=== PATIENT | male | born 1940 | race Caucasian/White ===

== ENCOUNTER → 2016-11-10 | Outpatient (CLI) | payer BC ==
[~2016-11-10] MED LIST: AMLO-114 PO; ASPI325T45 PO; ATOR-24 PO; GARL705C PO; GLIM4TAB PO; LISI-461 PO; LISI-725 PO; NCDT21 EXT; PLV75 PO; PRIM50TA29 PO; PROP10TA7 PO; PSYL55.43 PO; TURM1CAP4 PO; WLC625 PO
[2016-11-10 17:41] LABS: URINE APPEARANCE CLEAR (CLEAR); URINE BILIRUBIN NEG (NEG); URINE COLOR YELLOW; URINE EPITHELIAL CELL AUTO 0-5 /lpf (0-5); URINE NITRITE NEG (NEG); URINE PH 5.5 (4.5-7.5); URINE SPECIFIC GRAVITY 1.015 (1.000-1.030); UROBILINOGEN NEG (NEG)
[2016-11-10 17:42] LABS: BLOOD UREA NITROGEN 38 mg/dl (7-18); BUN/CREATININE RATIO 22.6 (10-20); CALCIUM 9.7 mg/dl (8.5-10.1); CARBON DIOXIDE 28 mmol/L (21-32); CHLORIDE 106 mmol/L (98-107); GLUCOSE 107 mg/dl (70-99); POTASSIUM 4.6 mmol/L (3.5-5.1); SODIUM 139 mmol/L (136-145)
[2016-11-10 17:43] LABS: PHOSPHORUS 3.9 mg/dl (2.5-4.9)
[2016-11-10 17:53] LABS: MANUAL MICROSCOPIC REQUIRED? NO; REVIEW REQ? NO
[2016-11-10 18:07] LABS: URINE PROTIEN/CREAT RATIO 0.3 (0-0.2); URINE TOTAL PROTEIN 26.8 mg/dl (0-11.9)
== END | disposition home or self-care (01) ==
LOC: C.LABBFT 12:42
PROVIDERS: ATTEND Internal Medicine Nephrology
DX: N18.3 Chronic kidney disease, stage 3 (moderate) (principal)

== ENCOUNTER → 2016-12-15 | Outpatient (CLI) | payer BC ==
[2016-12-16 06:40] LABS: ESTIMATED AVERAGE GLUCOSE 146 mg/dl; HA1C FLAG Normal (Normal)
== END | disposition home or self-care (01) ==
LOC: C.LABBFT 12:39
PROVIDERS: ATTEND Family Medicine
DX: E11.9 Type 2 diabetes mellitus without complications (principal)

== ENCOUNTER → 2016-12-17 | Outpatient (CLI) | payer BC ==
[2016-12-29 16:35] LABS: O&P SOURCE OTHER-STOOL
== END | disposition home or self-care (01) ==
LOC: C.LABSPEC 17:05
PROVIDERS: ATTEND Physician Assistant
DX: R19.7 Diarrhea, unspecified (principal)

== ENCOUNTER → 2017-05-10 | Outpatient (CLI) | payer BC ==
[2017-05-10 18:45] LABS: URINE APPEARANCE CLEAR (CLEAR); URINE BILIRUBIN NEG (NEG); URINE COLOR YELLOW; URINE NITRITE NEG (NEG); URINE PH 5.5 (4.5-7.5); URINE SPECIFIC GRAVITY 1.017 (1.000-1.030); UROBILINOGEN NEG (NEG)
[2017-05-10 18:49] LABS: MANUAL MICROSCOPIC REQUIRED? NO; REVIEW REQ? NO
[2017-05-10 19:09] LABS: BLOOD UREA NITROGEN 24 mg/dl (7-18); BUN/CREATININE RATIO 16.1 (10-20); CALCIUM 8.8 mg/dl (8.5-10.1); CARBON DIOXIDE 25 mmol/L (21-32); CHLORIDE 111 mmol/L (98-107); GLUCOSE 98 mg/dl (70-99); POTASSIUM 4.3 mmol/L (3.5-5.1); SODIUM 143 mmol/L (136-145)
[2017-05-10 19:11] LABS: PHOSPHORUS 2.6 mg/dl (2.5-4.9)
== END | disposition home or self-care (01) ==
LOC: C.LABBFT 11:41
PROVIDERS: ATTEND Internal Medicine Nephrology
DX: N18.3 Chronic kidney disease, stage 3 (moderate) (principal)

== ENCOUNTER → 2017-06-09 | Outpatient (CLI) | payer BC ==
[2017-06-09 17:25] LABS: BASO % 0.5 %; BASO ABS # 0.04 K/uL (0-0.2); COMPLETE YES; EOS % 2.4 %; IG% 0.2 %; LYMPH ABS # 2.32 K/uL (1.2-3.4); MEAN CELL VOLUME 95.2 fL (80-100); MEAN CORPUSCULAR HEMOGLOBIN 30.8 pg (25-34); MEAN CORPUSCULAR HGB CONC 32.4 g/dl (32-36); MEAN PLATELET VOLUME 10.8 fL (7.4-10.4); MONO % 9.8 %; NEUT % 59.1 %; PLATELET COUNT 159 K/uL (130-400); RED BLOOD COUNT 4.83 M/uL (4.7-6.1); WHITE BLOOD COUNT 8.28 K/uL (4.8-10.8)
[2017-06-09 17:53] LABS: BLOOD UREA NITROGEN 25 mg/dl (7-18); CALCIUM 9.4 mg/dl (8.5-10.1); CARBON DIOXIDE 30 mmol/L (21-32); CHLORIDE 107 mmol/L (98-107); CHOLESTEROL 170 mg/dl (0-200); CREATININE 1.63 mg/dl (0.60-1.40); GLUCOSE 94 mg/dl (70-99); POTASSIUM 4.2 mmol/L (3.5-5.1); SODIUM 142 mmol/L (136-145); TRIGLYCERIDES 215 mg/dl (0-150); VERY LOW DENSITY LIPOPROT CALC 43 mg/dl
[2017-06-09 17:56] LABS: CHOLESTEROL/HDL RATIO 4.1; HDL CHOLESTEROL 41 mg/dl; LDL CHOLESTEROL CALCULATED 86 mg/dl; PHOSPHORUS 3.2 mg/dl (2.5-4.9)
[2017-06-10 06:11] LABS: ESTIMATED AVERAGE GLUCOSE 134 mg/dl; HA1C FLAG Normal (Normal)
== END | disposition home or self-care (01) ==
LOC: C.LABBFT 13:59
PROVIDERS: ATTEND Internal Medicine
DX: N18.3 Chronic kidney disease, stage 3 (moderate) (principal); E78.5 Hyperlipidemia, unspecified; E11.49 Type 2 diabetes mellitus with other diabetic neurological complication; E55.9 Vitamin D deficiency, unspecified; I25.10 Atherosclerotic heart disease of native coronary artery without angina pectoris

== ENCOUNTER → 2017-07-08 | Outpatient (CLI) | payer BC | END | disposition home or self-care (01) | LOC: C.LAB 14:24 | PROVIDERS: ATTEND Internal Medicine | DX: R19.7 Diarrhea, unspecified (principal) ==

== ENCOUNTER → 2017-08-30 | Outpatient (CLI) | payer BC ==
[~2017-08-30] VITALS: Ht 177.8 cm; Wt 136.1 kg
[2017-08-30 12:26] VITALS: BP 138/82; PULSE 85; Ht 177.8 cm; Wt 136.1 kg
== END | disposition home or self-care (01) ==
LOC: C.NEUR 12:00
PROVIDERS: ATTEND Internal Medicine Pulmonary Disease
DX: G47.33 Obstructive sleep apnea (adult) (pediatric) (principal); E66.01 Morbid (severe) obesity due to excess calories; Z68.41 Body mass index [BMI] 40.0-44.9, adult

== ENCOUNTER → 2017-11-07 | Outpatient (CLI) | payer BC ==
[~2017-11-07] MED LIST changes: +ASPECOTC PO; -ASPI325T45 PO
[2017-11-07 16:44] LABS: ALBUMIN 3.5 gm/dl (3.4-5.0); ALT/SGPT 44 U/L (12-78); AST/SGOT 21 U/L (15-37); BLOOD UREA NITROGEN 28 mg/dl (7-18); CALCIUM 9.1 mg/dl (8.5-10.1); CARBON DIOXIDE 25 mmol/L (21-32); CREATININE 1.62 mg/dl (0.60-1.40); GLUCOSE 122 mg/dl (70-99); POTASSIUM 4.3 mmol/L (3.5-5.1); SODIUM 138 mmol/L (136-145)
[2017-11-07 16:47] LABS: ALKALINE PHOSPHATASE 62 U/L (45-117); CHOLESTEROL 186 mg/dl (0-200); LDL CHOLESTEROL CALCULATED 107 mg/dl; PHOSPHORUS 3.4 mg/dl (2.5-4.9); TOTAL PROTEIN 7.4 gm/dl (6.4-8.2)
--- NOTE | 2017-12-09 08:53 | CODING QUERY NO DIAGNOSIS ---
: 1940 TREATMENT RENDERED WITHOUT A DIAGNOSIS To promote full compliance with coding requirements relating to patient care, physician participation is requested in all cases of feather renovator uncertainty. Please assist us with providing a diagnosis/symptom for the test(s) below: A diagnosis/symptom was not documented on your Order. A valid diagnosis/symptom is required to bill all insurances. Please remember that we are unable to code a diagnosis of rule out, probable, possible, questionable, or suspected. Tests that require a diagnosis: DOS: 11/07/17 * PHOSPHORUS DIAGNOSIS: Provider Signature: Date: Thank you Payal oRdas Health Information Management Once completed, please kindly fax back to [phone] For questions please call [phone]
== END | disposition home or self-care (01) ==
LOC: C.LABBFT 13:17
PROVIDERS: ATTEND Physician Assistant Medical
DX: N18.3 Chronic kidney disease, stage 3 (moderate) (principal); E11.22 Type 2 diabetes mellitus with diabetic chronic kidney disease

== ENCOUNTER 2022-07-03 18:06 | Observation (INO) ==
[2022-07-03] MEDS ORDERED: CEFEPIME 2,000 MG/20 ML VIAL IV STA (18:19)
[2022-07-03] MEDS ORDERED: SODIUM CHLORIDE 0.9% 1000ML 1,000 ML IV ONE (18:19)
[2022-07-03] MEDS ORDERED: STAT IV Infusion **Titration per Protocol STA ×2 (18:20→21:36)
[2022-07-03] MEDS ORDERED: PROPOFOL BOLUS FROM BAG IV PRN (18:20)
[2022-07-03] MEDS ORDERED: PROPOFOL IV EMULSION 10 MG/ML 100 ML VIAL IV ONE (18:21)
[2022-07-03] MEDS ORDERED: propofoL 1,000 MG/100 ML VIAL IV SCH (18:30)
--- NOTE | 2022-07-03 18:33 | Emergency Department Note ---
Impression & Plan Aspiration pneumonia, Respiratory failure, Sepsis, Urinary tract infection, Acute alteration in mental status ED Provider Note NAME: JEANETTE LEÓN AGE: 81 SEX: M : 1940 ARRIVES VIA: Ambulance INFORMANT: EMS ED PROVIDER(S): Morgan Sherwood DO CHIEF COMPLAINT: Altered mental status HPI: The patient is a an 81-year-old male who presented to the emergency department for an evaluation of altered mental status. The patient was found at home by family. They last saw him at 4 PM yesterday. At that time the patient did not have any complaints. He has a long medical history. He has a history of type 2 diabetes. He has a history of coronary artery disease. The patient was evaluated by EMS. The patient was found to have hypoglycemia. They were unable to get an IV line in the patient and he was very combative on scene. They finally got an interosseous line. The patient received dextrose and his blood sugar improved but he was still very obtunded. He did not have any lateralizing weakness according to the prehospital personnel he was not seen since yesterday. He has had no vomiting as far as the prehospital personnel know but they found him to be very hypoxic with abnormal lung sounds. He was covered in stool. There is no reported fever. There is no reported trauma. The patient has a history of renal disease. ROS: See above HPI for pertinent positives & negatives. A total of 10 systems reviewed and were otherwise negative. PAST MEDICAL HISTORY: See Below PAST SURGICAL HISTORY: See Below FAMILY HISTORY: See Below SOCIAL HISTORY: See Below HOME MEDICATIONS: See Below ALLERGIES: See Below VITALS: See Below PHYSICAL EXAMINATION: GENERAL: The patient is awake and looking around the room. He is not following commands or answering questions. EYES: The conjunctivae are clear. The pupils are round and reactive. EARS, NOSE, MOUTH AND THROAT: The nose is without any evidence of any deformity. NECK: The neck is nontender and supple. RESPIRATORY: Shallow respirations were noted. Rhonchi were noted throughout. CARDIOVASCULAR: Tachycardic rate with ectopy was noted. There is no definite murmur. GASTROINTESTINAL: The abdomen was distended. There is no guarding rigidity. MUSCULOSKELETAL/EXTREMITIES: There is no evidence of gross deformity full range of motion is noted in the hips and shoulders. SKIN: Chronic venous stasis changes with pedal edema was noted bilaterally. Multiple skin tears were noted on the upper extremities. NEUROLOGIC: Patient is awake and looking around the room. He is moving extremities bilaterally and combative with staff. He does appear to have a right gaze preference and will not look to the left. MEDICAL DECISION MAKING: The patient is an 81-year-old male who presented to the emergency department for an evaluation of altered mental status. The patient arrived via ambulance. Attempts were made to intubate the patient prior to arrival but they were unsuccessful. The patient was clenched down. Upon arrival the decision was made to intubate the patient. The patient was treated with IV fluids and IV antibiotics in the emergency department. The patient was also treated with sedation after he was intubated. The patient's last known well time was yesterday. His family members did present to me with him in the emergency department. The decision was made to continue resuscitative efforts. His oxygen saturation continued to decrease while he was in the emergency d epartment. He was placed on increasing oxygen concentration. [facility] have agreed to evaluate the patient in the emergency department for further management and disposition. Triage Nursing notes reviewed. Prior medical records reviewed Vital Signs: reviewed and remarkable for elevated blood pressure and hypoxia. Differential diagnosis: Infection, hypoglycemia, electrolyte abnormalities, overdose, toxicologic, cardiac sources, intracerebral event, neurologic, trauma, as well as other pathologies. ER treatment provided: See below Diagnostics interpreted by me: ECG: EKG was obtained in the emergency department. My interpretation was sinus tachycardia at 119 bpm. PVCs were noted. Nonspecific ST segment depressions were noted. This was compared to a tracing from November 23, 2021. There is an in crease in the rate otherwise no changes were noted. Cardiac Monitoring: An order was placed for continuous cardiac monitoring. The monitor shows a rate of 79 bpm with sinus rhythm and PVCs. Laboratory studies: As stated above and show below. Imaging studies: See below Consultation(s): I discussed this case with Dr. Chapman who [facility] ED COURSE: Procedures: Endotracheal Intubation Indication altered mental status. The patient was on 100% oxygen via NRB prior to the procedure. Suction, airway equipment, RSI drugs, respiratory equipment, and appropriate personnel were prepared prior to the initiation of the procedure. A time out was taken. Induction was performed with ketamine and rocuronium. After observing the clinical benefit of the medications, the airway was easily visualized utilizing a glide scope. A 7.5 size ETT tube was placed atraumatically to 25 cm using standard technique. The cuff inflated without signs of malfunction. There were bilateral breath sounds, positive colormetric change, no gastric sounds, a good capnography waveform, and post procedure pulse oximetry was 95%. Post intubation sedation and paralysis was administered using propofol. There were no complic ations. Critical Care: I have personally spent greater than 35 minutes of critical care time in the direct management of this patient. This includes bedside care, interpretation of diagnostic studies, and testing, discussion with consultants, patient, and family members, and other required patient management activities. This 35 minutes is in excess of all separately billable procedures. Past Med/Surg History Medical History Actinic keratosis Acute kidney injury Angiofibroma of skin of nose Angioma Antiplatelet or antithrombotic long-term use Aortic valve stenosis CAD in [place] artery Carotid bruit Diabetes mellitus with neurological manifestations Diabetic peripheral neuropathy Diarrhea DELANEY (dyspnea on exertion) Essential (primary) hypertension Hyperlipidemia Hypertension Morbid obesity Multiple benign nevi Obstructive sleep apnea Peripheral edema Proteinuria Sebaceous hyperplasia Seborrheic keratosis Secondary hyperparathyroidism of renal origin Stage 3 chronic kidney disease Stage 3b chronic kidney disease Stool incontinence Vitamin D deficiency Vitamin D deficiency Surgical History H/O umbilical hernia repair S/P TAVR (transcatheter aortic valve replacement) 26 mm Estrada ULTRA valve-02/04/22[facility] [place] Stented coronary artery 1 distal right coronary artery, 1 type drug eluting Family History Brother Colorectal cancer Father Cardiac disorder Myocardial infarction Mother Congestive heart failure Spastic colon Sister Breast cancer Uncle Myocardial infarction Sister Congestive heart failure COVID Unknown Breast cancer Denies family history of Ovarian cancer Prostate cancer Diabetes Lung cancer Social History Smoking Status: Unknown if ever smoked Tobacco Type: Cigarettes Age Started Using Tobacco: 11; packs per day: 1; Second Hand Exposure: Yes; Hx Alcohol Use: Yes Alcohol type: hard liquor Alcohol Intake Frequency: Monthly or Less Alcohol Intake Frequency Comment: once per month he will have 1 cocktail with dinner Hx Substance Use: No Preferred Language: Luxembourger Communication Ability: Effective Visual Impairment: No Limitations Hearing Ability: Hard of Hearing marital status: Single Current Living Situation: Alone current occupational status: retired 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 Feels Safe at Home: Yes Childhood Exposure to Second-Hand Smoke: No caffeine: Yes during the past year weight has: increased > 10 lbs Dental Care, Regularly: Yes Physical Activity Frequency: Does not Exercise Seatbelt Use: always Sunscreen Use: No Allergies Allergies Allergy/AdvReac Type Severity Reaction Status Date / Time Penicillins Allergy Unknown SKIN Verified 07/03/22 18:44 PEELING AND ITCHING metformin Allergy Diarrhea Verified 07/03/22 18:44 [id number] Reductase Allergy muscle Verified 07/03/22 18:44 Inhibitor cramps [[id number] Reductase Inhibitor] Home Meds Home Medications Medication Instructions Recorded Confirmed aspirin 81 mg tablet,delayed 81 mg PO DAILY 04/25/19 07/03/22 release cbd oil 600 ml PO BID 04/03/20 07/03/22 lisinopril 20 mg tablet 20 mg PO DAILY 04/01/22 07/03/22 gabapentin 300 mg capsule 300 mg PO DAILY 05/11/22 07/03/22 clindamycin HCl 150 mg capsule 600 mg PO DIRECTED PRN PRIOR TO 07/03/22 07/03/22 DENTAL APPT. clopidogrel 75 mg tablet 75 mg PO DAILY 07/03/22 07/03/22 glimepiride 1 mg tablet See Rx Instructions .Route .COMPLEX 07/03/22 07/03/22 Previous Rx's Medication Instructions Recorded blood-glucose meter (Blood Glucose #1 ea 07/30/19 Monitoring kit) albuterol sulfate 90 mcg/actuation 2 puff inhalation Q6H PRN 06/01/21 aerosol inhaler (ProAir HFA) shortness of breath or wheezing #8.5 grams blood sugar diagnostic (Blood #300 ea 10/14/21 Glucose Test strips) lancets 30 gauge (OneTouch Delica #300 ea 10/27/21 Lancets) metoprolol succinate 50 mg 50 mg PO DAILY #90 tabs 11/03/21 tablet,extended release 24 hr primidone 50 mg tablet 50 mg PO DAILY #90 tabs 01/12/22 acetaminophen 325 mg tablet 650 mg PO Q4H PRN pain #30 tabs 02/09/22 furosemide 40 mg tablet 40 mg PO DAILY PRN edema #90 tabs 04/30/22 potassium chloride 20 mEq 20 meq PO DAILY PRN Days taking 04/30/22 tablet,extended release furosemide #90 tabs Results & Data (ED) Vital Signs Vital Signs - 24 hr 07/03/22 18:26 07/03/22 18:10 07/03/22 18:45 Temperature Temperature Source Pulse Rate 117 H 137 H Pulse Rate [Left Finger] Pulse Rate from SpO2 Sensor Pulse Rhythm [Left Finger] Respiratory Rate 20 Respiratory Effort / Characteristics Blood Pressure Blood Pressure [Left Arm] Blood Pressure Mean Blood Pressure Mean [Left Arm] Blood Pressure Position [Left Arm] Pulse Oximetry 93 95 Oxygen Delivery Method Mechanical Vent Fraction of Inspired Oxygen 80 Sepsis Recent Fever Within 48 Hours No Sepsis New/Unexplained Change in Mental Status Yes Sepsis Action Taken by Nursing No Action Required End-Tidal CO2 44 07/03/22 18:17 07/03/22 18:20 07/03/22 18:30 Temperature Temperature Source Pulse Rate 118 H Pulse Rate [Left Finger] Pulse Rate from SpO2 Sensor 120 H 109 H Pulse Rhythm [Left Finger] Respiratory Rate 20 Respiratory Effort / Characteristics Blood Pressure 162/114 H Blood Pressure [Left Arm] Blood Pressure Mean 130 Blood Pressure Mean [Left Arm] Blood Pressure Position [Left Arm] Pulse Oximetry 95 97 Oxygen Delivery Method Fraction of Inspired Oxygen Sepsis Recent Fever Within 48 Hours Sepsis New/Unexplained Change in Mental Status Sepsis Action Taken by Nursing End-Tidal CO2 51 07/03/22 18:30 07/03/22 18:45 07/03/22 18:45 Temperature Temperature Source Pulse Rate 126 H 143 H Pulse Rate [Left Finger] Pulse Rate from SpO2 Sensor 122 H 152 H Pulse Rhythm [Left Finger] Respiratory Rate 20 20 Respiratory Effort / Characteristics Blood Pressure 160/84 H Blood Pressure [Left Arm] Blood Pressure Mean 109 Blood Pressure Mean [Left Arm] Blood Pressure Position [Left Arm] Pulse Oximetry 94 95 Oxygen Delivery Method Mechanical Vent Fraction of Inspired Oxygen Sepsis Recent Fever Within 48 Hours Sepsis New/Unexplained Change in Mental Status Sepsis Action Taken by Nursing End-Tidal CO2 43 38 07/03/22 18:56 07/03/22 18:16 07/03/22 18:30 Temperature 37.9 C H Temperature Source Rectal Pulse Rate Pulse Rate [Left Finger] 118 H Pulse Rate from SpO2 Sensor Pulse Rhythm [Left Finger] Irregular Respiratory Rate 20 Respiratory Effort / Characteristics Blood Pressure Blood Pressure [Left Arm] 147/90 H 162/14 H Blood Pressure Mean Blood Pressure Mean [Left Arm] 109 63 Blood Pressure Position [Left Arm] Lying Pulse Oximetry 89 L Oxygen Delivery Method Fraction of Inspired Oxygen Sepsis Recent Fever Within 48 Hours Sepsis New/Unexplained Change in Mental Status Sepsis Action Taken by Nursing End-Tidal CO2 07/03/22 18:16 07/03/22 19:00 07/03/22 19:52 Temperature Temperature Source Pulse Rate 143 H Pulse Rate [Left Finger] 118 H Pulse Rate from SpO2 Sensor 130 H Pulse Rhythm [Left Finger] Irregular Respiratory Rate 20 20 Respiratory Effort / Characteristics Blood Pressure 159/106 H Blood Pressure [Left Arm] 147/90 H Blood Pressure Mean 123 Blood Pressure Mean [Left Arm] 109 Blood Pressure Position [Left Arm] Lying Pulse Oximetry 89 L 93 90 Oxygen Delivery Method Mechanical Vent Fraction of Inspired Oxygen Sepsis Recent Fever Within 48 Hours Sepsis New/Unexplained Change in Mental Status Sepsis Action Taken by Nursing End-Tidal CO2 40 07/03/22 19:15 07/03/22 19:44 07/03/22 19:45 Temperature Temperature Source Pulse Rate 157 H 143 H Pulse Rate [Left Finger] Pulse Rate from SpO2 Sensor 144 H 129 H Pulse Rhythm [Left Finger] Respiratory Rate 20 20 Respiratory Effort / Characteristics Blood Pressure 161/133 H Blood Pressure [Left Arm] Blood Pressure Mean 142 Blood Pressure Mean [Left Arm] Blood Pressure Position [Left Arm] Pulse Oximetry Oxygen Delivery Method Fraction of Inspired Oxygen Sepsis Recent Fever Within 48 Hours Sepsis New/Unexplained Change in Mental Status Sepsis Action Taken by Nursing End-Tidal CO2 34 43 07/03/22 19:45 07/03/22 20:05 07/03/22 20:12 Temperature Temperature Source Pulse Rate 145 H 135 H Pulse Rate [Left Finger] 135 H Pulse Rate from SpO2 Sensor 132 H Pulse Rhythm [Left Finger] Respiratory Rate 17 20 20 Respiratory Effort / Characteristics Mechanically Ventilated Blood Pressure 161/133 H Blood Pressure [Left Arm] Blood Pressure Mean 142 Blood Pressure Mean [Left Arm] Blood Pressure Position [Left Arm] Pulse Oximetry 87 L 91 91 Oxygen Delivery Method Mechanical Vent Fraction of Inspired Oxygen 100 100 Sepsis Recent Fever Within 48 Hours Sepsis New/Unexplained Change in Mental Status Sepsis Action Taken by Nursing End-Tidal CO2 30 40 07/03/22 20:00 07/03/22 20:00 07/03/22 20:15 Temperature Temperature Source Pulse Rate 139 H 138 H Pulse Rate [Left Finger] Pulse Rate from SpO2 Sensor 125 H 147 H Pulse Rhythm [Left Finger] Respiratory Rate 20 20 Respiratory Effort / Characteristics Blood Pressure 157/111 H Blood Pressure [Left Arm] Blood Pressure Mean 126 Blood Pressure Mean [Left Arm] Blood Pressure Position [Left Arm] Pulse Oximetry 84 L 92 Oxygen Delivery Method Fraction of Inspired Oxygen Sepsis Recent Fever Within 48 Hours Sepsis New/Unexplained Change in Mental Status Sepsis Action Taken by Nursing End-Tidal CO2 39 44 07/03/22 20:16 Temperature Temperature Source Pulse Rate 142 H Pulse Rate [Left Finger] Pulse Rate from SpO2 Sensor 141 H Pulse Rhythm [Left Finger] Respiratory Rate 20 Respiratory Effort / Characteristics Blood Pressure 130/78 Blood Pressure [Left Arm] Blood Pressure Mean 95 Blood Pressure Mean [Left Arm] Blood Pressure Position [Left Arm] Pulse Oximetry 87 L Oxygen Delivery Method Fraction of Inspired Oxygen Sepsis Recent Fever Within 48 Hours Sepsis New/Unexplained Change in Mental Status Sepsis Action Taken by Nursing End-Tidal CO2 40 Home Medications Current Medication List: was personally reviewed by me Laboratory Data Attestation: I reviewed the patient's lab results. Result diagrams: 07/03/22 18:23 07/03/22 18:23 Lab Results 07/03/22 07/03/22 07/03/22 Range/Units 18:23 18:23 18:23 WBC 11.07 H (4.8-10.8) K/ul RBC 4.65 (4.63-6.08) M/uL Hgb 14.3 (14.0-18.0) g/dl Hct 44.7 (40.1-51.0) % MCV 96.1 (80.0-100.0) fL MCH 30.8 (25.0-34.0) pg MCHC 32.0 (32.0-36.0) g/dL RDW Std Deviation 50.4 H (36.4-46.3) fL RDW Coeff of Matt 14.2 (11.5-14.5) % Plt Count 176 (130-400) K/uL MPV 10.3 (9.4-12.4) fL Immature Gran % (Auto) 0.3 % Neut % (Auto) 75.3 % Lymph % (Auto) 15.0 % [place] % (Auto) 9.2 % Eos % (Auto) 0.0 % Baso % (Auto) 0.2 % Neut # (Auto) 8.34 H (1.4-6.5) K/uL Lymph # (Auto) 1.66 (1.2-3.4) K/uL [place] # (Auto) 1.02 H (0.24-0.82) K/uL Eos # (Auto) 0.00 (0-0.50) K/uL Baso # (Auto) 0.02 (0-0.2) K/uL Immature Gran # (Auto) 0.03 H (0.00-0.02) K/uL PT 11.4 (9.0-12.0) Seconds INR 1.1 (0.9-1.1) APTT 27.4 (21.0-31.0) Seconds PTT Ratio 1.0 VBG pH (7.36-7.41) VBG pCO2 (38-50) mmHg VBG pO2 mmHg VBG HCO3 mmol/L VBG O2 Saturation % VBG Base Excess mEq/L Sodium 135 L (136-145) mmol/L Potassium 3.6 (3.5-5.1) mmol/L Chloride 101 (98-107) mmol/L Carbon Dioxide 26 (21-32) mmol/L Anion Gap 8 (3-11) BUN 25 H (6-23) mg/dl Creatinine 1.80 H (0.6-1.4) mg/dl Est Cr Clr Drug Dosing 40.2 ml/min Est GFR ( Amer) 39.5 ml/min Est GFR (Non-Af Amer) 34.0 ml/min BUN/Creatinine Ratio 13.9 (10-20) Glucose 86 (70-99(Fasting)) mg/dl POC Glucose (70-99) mg/dl Lactate (0.4-2.0) mmol/L Calcium 9.2 (8.5-10.1) mg/dl Magnesium 1.9 (1.7-2.4) mg/dl Total Bilirubin 0.7 (0.2-1.0) mg/dl Direct Bilirubin 0.2 (0-0.2) mg/dl AST 19 (13-39) U/L ALT 22 (7-52) U/L Alkaline Phosphatase 70 (34-104) U/L Total Creatine Kinase (30-223) U/L Troponin I High Sens 17.0 (0-20) pg/ml Total Protein 7.7 (6.0-8.3) gm/dl Albumin 3.6 (3.4-5.0) gm/dl Procalcitonin (0-0.5) ng/ml Urine Color Urine Appearance (Clear) Urine pH (4.5-7.5) Ur Specific [place] (1.000-1.030) Urine Protein (Negative) Urine Glucose (UA) (Negative) Urine Ketones (Negative) Urine Blood (Negative) Urine Nitrite (Negative) Urine Bilirubin (Negative) Urine Urobilinogen (Negative) Ur Leukocyte Esterase (Negative) Urine RBC (0-4) /hpf Urine WBC (0-5) /hpf Ur Epithelial Cells (0-5) /lpf Urine Bacteria (Negative) SARS-CoV-2 (PCR) (Negative) Influenza Type A (PCR) (Neg) Influenza Type B (PCR) (Neg) RSV (RT-PCR) (Neg) 07/03/22 07/03/22 07/03/22 Range/Units 18:23 18:23 18:23 WBC (4.8-10.8) K/ul RBC (4.63-6.08) M/uL Hgb (14.0-18.0) g/dl Hct (40.1-51.0) % MCV (80.0-100.0) fL MCH (25.0-34.0) pg MCHC (32.0-36.0) g/dL RDW Std Deviation (36.4-46.3) fL RDW Coeff of Matt (11.5-14.5) % Plt Count (130-400) K/uL MPV (9.4-12.4) fL Immature Gran % (Auto) % Neut % (Auto) % Lymph % (Auto) % [place] % (Auto) % Eos % (Auto) % Baso % (Auto) % Neut # (Auto) (1.4-6.5) K/uL Lymph # (Auto) (1.2-3.4) K/uL [place] # (Auto) (0.24-0.82) K/uL Eos # (Auto) (0-0.50) K/uL Baso # (Auto) (0-0.2) K/uL Immature Gran # (Auto) (0.00-0.02) K/uL PT (9.0-12.0) Seconds INR (0.9-1.1) APTT (21.0-31.0) Seconds PTT Ratio VBG pH (7.36-7.41) VBG pCO2 (38-50) mmHg VBG pO2 mmHg VBG HCO3 mmol/L VBG O2 Saturation % VBG Base Excess mEq/L Sodium (136-145) mmol/L Potassium (3.5-5.1) mmol/L Chloride (98-107) mmol/L Carbon Dioxide (21-32) mmol/L Anion Gap (3-11) BUN (6-23) mg/dl Creatinine (0.6-1.4) mg/dl Est Cr Clr Drug Dosing ml/min Est GFR ( Amer) ml/min Est GFR (Non-Af Amer) ml/min BUN/Creatinine Ratio (10-20) Glucose (70-99(Fasting)) mg/dl POC Glucose (70-99) mg/dl Lactate 2.7 H* (0.4-2.0) mmol/L Calcium (8.5-10.1) mg/dl Magnesium (1.7-2.4) mg/dl Total Bilirubin (0.2-1.0) mg/dl Direct Bilirubin (0-0.2) mg/dl AST (13-39) U/L ALT (7-52) U/L Alkaline Phosphatase (34-104) U/L Total Creatine Kinase 124 (30-223) U/L Troponin I High Sens (0-20) pg/ml Total Protein (6.0-8.3) gm/dl Albumin (3.4-5.0) gm/dl Procalcitonin 0.34 (0-0.5) ng/ml Urine Color Urine Appearance (Clear) Urine pH (4.5-7.5) Ur Specific [place] (1.000-1.030) Urine Protein (Negative) Urine Glucose (UA) (Negative) Urine Ketones (Negative) Urine Blood (Negative) Urine Nitrite (Negative) Urine Bilirubin (Negative) Urine Urobilinogen (Negative) Ur Leukocyte Esterase (Negative) Urine RBC (0-4) /hpf Urine WBC (0-5) /hpf Ur Epithelial Cells (0-5) /lpf Urine Bacteria (Negative) SARS-CoV-2 (PCR) (Negative) Influenza Type A (PCR) (Neg) Influenza Type B (PCR) (Neg) RSV (RT-PCR) (Neg) 07/03/22 07/03/22 07/03/22 Range/Units 18:26 18:27 18:34 WBC (4.8-10.8) K/ul RBC (4.63-6.08) M/uL Hgb (14.0-18.0) g/dl Hct (40.1-51.0) % MCV (80.0-100.0) fL MCH (25.0-34.0) pg MCHC (32.0-36.0) g/dL RDW Std Deviation (36.4-46.3) fL RDW Coeff of Matt (11.5-14.5) % Plt Count (130-400) K/uL MPV (9.4-12.4) fL Immature Gran % (Auto) % Neut % (Auto) % Lymph % (Auto) % [place] % (Auto) % Eos % (Auto) % Baso % (Auto) % Neut # (Auto) (1.4-6.5) K/uL Lymph # (Auto) (1.2-3.4) K/uL [place] # (Auto) (0.24-0.82) K/uL Eos # (Auto) (0-0.50) K/uL Baso # (Auto) (0-0.2) K/uL Immature Gran # (Auto) (0.00-0.02) K/uL PT (9.0-12.0) Seconds INR (0.9-1.1) APTT (21.0-31.0) Seconds PTT Ratio VBG pH 7.19 L (7.36-7.41) VBG pCO2 65 H (38-50) mmHg VBG pO2 39 mmHg VBG HCO3 25 mmol/L VBG O2 Saturation 60.0 % VBG Base Excess -4.6 mEq/L Sodium (136-145) mmol/L Potassium (3.5-5.1) mmol/L Chloride (98-107) mmol/L Carbon Dioxide (21-32) mmol/L Anion Gap (3-11) BUN (6-23) mg/dl Creatinine (0.6-1.4) mg/dl Est Cr Clr Drug Dosing ml/min Est GFR ( Amer) ml/min Est GFR (Non-Af Amer) ml/min BUN/Creatinine Ratio (10-20) Glucose (70-99(Fasting)) mg/dl POC Glucose 75 (70-99) mg/dl Lactate (0.4-2.0) mmol/L Calcium (8.5-10.1) mg/dl Magnesium (1.7-2.4) mg/dl Total Bilirubin (0.2-1.0) mg/dl Direct Bilirubin (0-0.2) mg/dl AST (13-39) U/L ALT (7-52) U/L Alkaline Phosphatase (34-104) U/L Total Creatine Kinase (30-223) U/L Troponin I High Sens (0-20) pg/ml Total Protein (6.0-8.3) gm/dl Albumin (3.4-5.0) gm/dl Procalcitonin (0-0.5) ng/ml Urine Color Dark Yellow Urine Appearance Turbid A (Clear) Urine pH 5.5 (4.5-7.5) Ur Specific [place] 1.025 (1.000-1.030) Urine Protein 2+ H (Negative) Urine Glucose (UA) Negative (Negative) Urine Ketones Negative (Negative) Urine Blood 2+ H (Negative) Urine Nitrite Positive A (Negative) Urine Bilirubin Negative (Negative) Urine Urobilinogen Negative (Negative) Ur Leukocyte Esterase 3+ H (Negative) Urine RBC 0-4 (0-4) /hpf Urine WBC >30 H (0-5) /hpf Ur Epithelial Cells 0-5 (0-5) /lpf Urine Bacteria 2+ H (Negative) SARS-CoV-2 (PCR) (Negative) Influenza Type A (PCR) (Neg) Influenza Type B (PCR) (Neg) RSV (RT-PCR) (Neg) 07/03/22 07/03/22 07/03/22 Range/Units 18:55 19:08 19:55 WBC (4.8-10.8) K/ul RBC (4.63-6.08) M/uL Hgb (14.0-18.0) g/dl Hct (40.1-51.0) % MCV (80.0-100.0) fL MCH (25.0-34.0) pg MCHC (32.0-36.0) g/dL RDW Std Deviation (36.4-46.3) fL RDW Coeff of Matt (11.5-14.5) % Plt Count (130-400) K/uL MPV (9.4-12.4) fL Immature Gran % (Auto) % Neut % (Auto) % Lymph % (Auto) % [place] % (Auto) % Eos % (Auto) % Baso % (Auto) % Neut # (Auto) (1.4-6.5) K/uL Lymph # (Auto) (1.2-3.4) K/uL [place] # (Auto) (0.24-0.82) K/uL Eos # (Auto) (0-0.50) K/uL Baso # (Auto) (0-0.2) K/uL Immature Gran # (Auto) (0.00-0.02) K/uL PT (9.0-12.0) Seconds INR (0.9-1.1) APTT (21.0-31.0) Seconds PTT Ratio VBG pH (7.36-7.41) VBG pCO2 (38-50) mmHg VBG pO2 mmHg VBG HCO3 mmol/L VBG O2 Saturation % VBG Base Excess mEq/L Sodium (136-145) mmol/L Potassium (3.5-5.1) mmol/L Chloride (98-107) mmol/L Carbon Dioxide (21-32) mmol/L Anion Gap (3-11) BUN (6-23) mg/dl Creatinine (0.6-1.4) mg/dl Est Cr Clr Drug Dosing ml/min Est GFR ( Amer) ml/min Est GFR (Non-Af Amer) ml/min BUN/Creatinine Ratio (10-20) Glucose (70-99(Fasting)) mg/dl POC Glucose 75 70 (70-99) mg/dl Lactate (0.4-2.0) mmol/L Calcium (8.5-10.1) mg/dl Magnesium (1.7-2.4) mg/dl Total Bilirubin (0.2-1.0) mg/dl Direct Bilirubin (0-0.2) mg/dl AST (13-39) U/L ALT (7-52) U/L Alkaline Phosphatase (34-104) U/L Total Creatine Kinase (30-223) U/L Troponin I High Sens (0-20) pg/ml Total Protein (6.0-8.3) gm/dl Albumin (3.4-5.0) gm/dl Procalcitonin (0-0.5) ng/ml Urine Color Urine Appearance (Clear) Urine pH (4.5-7.5) Ur Specific [place] (1.000-1.030) Urine Protein (Negative) Urine Glucose (UA) (Negative) Urine Ketones (Negative) Urine Blood (Negative) Urine Nitrite (Negative) Urine Bilirubin (Negative) Urine Urobilinogen (Negative) Ur Leukocyte Esterase (Negative) Urine RBC (0-4) /hpf Urine WBC (0-5) /hpf Ur Epithelial Cells (0-5) /lpf Urine Bacteria (Negative) SARS-CoV-2 (PCR) NEGATIVE (Negative) Influenza Type A (PCR) Negative (Neg) Influenza Type B (PCR) Negative (Neg) RSV (RT-PCR) Negative (Neg) Administered Medications Discontinued Medications Albuterol (Albut/Ipratrop 3mg/0.5mg Neb 3 Ml Vial) 12 ml NEB ONE ONE; Protocol Stop: 07/03/22 19:58 Last Admin: 07/03/22 20:03 Dose: 12 ml Documented By: BS Fentanyl Citrate (Fentanyl Citrate 2,500 Mcg/250 Ml Bag) Confirm Administered Dose 2,500 mcg IV .STK-MED ONE Stop: 07/03/22 21:35 Last Admin: 07/03/22 22:44 Dose: Not Given Documented By: BPY Cefepime HCl (Maxipime) 2,000 mg in 20 mls @ 5 mls/min IV NOW STA; Protocol Stop: 07/03/22 18:22 Last Admin: 07/03/22 18:30 Dose: 5 mls/min Documented By: MNE Sodium Chloride (Nss 1000ml) 1,000 mls @ 999 mls/hr IV .Q1H1M ONE Stop: 07/03/22 19:19 Last Infusion: 07/03/22 20:02 Dose: 0 mls/hr Documented By: Admin: 07/03/22 18:30 Dose: 999 mls/hr Documented By: SOFÍA Propofol (Diprivan) 1,000 mg in 100 mls @ 23.562 mls/hr IV .Q4H15M LIZETTE; Protocol Stop: 07/06/22 18:29 Last Titration: 07/03/22 22:46 Dose: 0 mcg/kg/min, 0 mls/hr Documented By: Titration: 07/03/22 22:45 Dose: 0 mcg/kg/min, 0 mls/hr Documented By: Titration: 07/03/22 21:03 Dose: 35 mcg/kg/min, 23.6 mls/hr Documented By: Titration: 07/03/22 20:19 Dose: 40 mcg/kg/min, 26.9 mls/hr Documented By: Titration: 07/03/22 20:08 Dose: 35 mcg/kg/min, 23.6 mls/hr Documented By: Titration: 07/03/22 19:59 Dose: 30 mcg/kg/min, 20.2 mls/hr Documented By: Titration: 07/03/22 19:30 Dose: 15 mcg/kg/min, 10.1 mls/hr Documented By: Titration: 07/03/22 19:15 Dose: 10 mcg/kg/min, 6.7 mls/hr Documented By: Admin: 07/03/22 18:25 Dose: 5 mcg/kg/min, 3.4 mls/hr Documented By: SOFÍA Co-signed By: OLE Vancomycin HCl 2,500 mg/ (Sodium Chloride) 550 mls @ 200 mls/hr IV NOW ONE Stop: 07/03/22 22:42 Last Admin: 07/03/22 20:34 Dose: 200 mls/hr Documented By: OZIEL Phenylephrine HCl 20 mg/ (Dextrose) 502 mls @ 89.532 mls/hr IV .Q5H37M LIZETTE; Protocol Stop: 08/02/22 21:44 Last Titration: 07/03/22 22:45 Dose: 0 mcg/kg/min, 0 mls/hr Documented By: Admin: 07/03/22 22:44 Dose: 0.5 mcg/kg/min, 89.5 mls/hr Documented By: MANSOOR Co-signed By: IVAN Amiodarone HCl/Dextrose (Nexterone / D5w) 360 mg in 200 mls @ 33.333 mls/hr IV ONE ONE; Protocol Stop: 07/04/22 03:44 Last Admin: 07/03/22 22:41 Dose: Not Given Documented By: MANSOOR Fentanyl Citrate (Fentanyl Citrate) 2,500 mcg in 250 mls @ 2.5 mls/hr IV .Q96H LIZETTE; Protocol Stop: 07/17/22 21:44 Last Admin: 07/03/22 22:43 Dose: 50 mcg/hr, 5 mls/hr Documented By: MANSOOR Co-signed By: IVAN Miscellaneous (Stat Iv Infusion Titration Per Protocol) 1 each N/A NOW STA Stop: 07/03/22 18:21 Last Admin: 07/03/22 18:55 Dose: 1 each Documented By: MNE Norepinephrine Bitartrate (Norepinephrine/D5w 4 Mg/250 Ml) Confirm Administered Dose 4 mg IV .STK-MED ONE Stop: 07/03/22 22:02 Last Admin: 07/03/22 22:47 Dose: Not Given Documented By: BPMichelle Propofol (Propofol Iv Emulsion 10 Mg/Ml 100 Ml Vial) Confirm Administered Dose 1,000 mg IV .STK-MED ONE Stop: 07/03/22 18:22 Last Admin: 07/03/22 18:55 Dose: Not Given Documented By: MNE Vecuronium Lorado (Vecuronium Lorado 10 Mg Vial) Confirm Administered Dose 10 mg IV .STK-MED ONE Stop: 07/03/22 21:23 Last Admin: 07/03/22 21:22 Dose: 10 mg Documented By: MAGALI Co-signed By: IVAN Imaging Data Radiologist's Impression: Chest X-Ray 07/03/22 18:13 XR chest 1V portable CLINICAL HISTORY: Sepsis. COMPARISON STUDY: Chest radiograph November 23, [address] December 22, 2015. FINDINGS: The tip of the endotracheal tube is 4.3 cm above the ivory on the final image obtained at 6:57 PM. Tip of nasogastric tube is below the lower aspect of this image but at least within the body of the stomach. Mediastinal widening is unchanged from earlier exams. There is no pneumothorax. A small right pleural effusion is noted. Asymmetric interstitial thickening and airspace opacities within the right lung are present. Cardiomegaly is unchanged. IMPRESSION: 1. Satisfactory positioning of the endotracheal and nasogastric tubes. 2. No pneumothorax. Trace right pleural effusion. 3. Asymmetric right lung interstitial thickening and airspace opacities. The findings may reflect an infectious process or asymmetric pulmonary edema. Radiographic follow-up is recommended. ACT 112: Negative or not required by law. Electronically signed by: Jason Hurst M.D. 07/03/2022 7:14 PM Abdomen/Pelvis CT 07/03/22 18:19 CT OF THE ABDOMEN AND PELVIS WITHOUT CONTRAST CLINICAL HISTORY: Altered mental status. COMPARISON STUDY: No previous studies for comparison. TECHNIQUE: Axial images of the abdomen and pelvis were obtained without IV contrast. Images were reviewed in the axial, sagittal, and coronal planes. Automated exposure control was utilized for the study. A dose lowering t echnique was utilized adhering to the principles of ALARA. FINDINGS: Extensive consolidation throughout the right lung with secretions within the right bronchial tree are better depicted on the chest CT which will be reported separately. Endotracheal tube is appropriately positioned. Tip of nasogastric tube is within the distal stomach. Evaluation of the abdomen and pelvis is suboptimal on this unenhanced exam. No pneumatosis, free air or portal venous gas is present. There are gallstones within the gallbladder. No evidence for acute cholecystitis. Unenhanced images of the liver, spleen, adrenal glands and pancreas are unremarkable. The bladder is collapsed containing a Padron balloon. Bladder wall thickening is noted with adjacent stranding. There is moderate left perinephric stranding. There is no hydronephrosis. There are no renal, ureteral or bladder calculi. Small bilateral renal lesions are suboptimally assessed on this unenhanced exam. A 1.4 cm lesion arising from the lower pole of the right kidney on image 301 measures above water attenuation. This is indeterminate. Additional bilateral renal lesions measure water attenuation and favor cysts. Laxity of the anterior abdominal wall is noted. Exam is compromised given body wall contacting the gantry. Fat-containing subumbilical hernias are present. Umbilical hernia repair with mesh is noted. 2.1 cm peripherally calcified left lower quadrant density is noted. This is of doubtful significance. No acute fracture within the lumbar spine, pelvis or hips is identified. IMPRESSION: 1. Extensive consolidation throughout the right lung with secretions within the right bronchial tree. This suggests pneumonia/aspiration pneumonitis. Radiographic follow-up to ensure resolution is recommended. 2. Tip of nasogastric tube within the distal stomach. The tube could be withdrawn 3 cm. 3. No bowel obstruction. 4. Moderate left perinephric standing and bladder wall thickening with adjacent stranding. These findings are nonspecific and could be correlated with urinalysis. No urinary calculi or hydronephrosis. 5. Cholelithiasis. No evidence for acute cholecystitis. ACT 112: Negative or not required by law. Electronically signed by: Jason Hurst M.D. 07/03/2022 8:[address] 07/03/22 18:19 CT OF THE CERVICAL SPINE WITHOUT CONTRAST CLINICAL HISTORY: Altered mental status. COMPARISON STUDY: No previous studies for comparison. TECHNIQUE: Helical axial images of the cervical spine were obtained without IV contrast. Sagittal and coronal reconstructions were viewed. Automated exposure control was utilized for the study. A dose lowering technique was utilized adhering to the principles of ALARA. FINDINGS: Endotracheal and nasogastric tubes are partially imaged. Secretions within the nasopharynx and partial opacification of the sinuses are likely related to intubation. No acute cervical spine fracture is noted. Moderate multilevel degenerative changes are present. There is no prevertebral edema. Craniocervical junction is intact. IMPRESSION: No acute cervical spine fracture or subluxation. ACT 112: Negative or not required by law. Electronically signed by: Jason Hurst M.D. 07/03/2022 7:[address] 07/03/22 18:19 CT OF THE CHEST WITHOUT IV CONTRAST CLINICAL HISTORY: Altered mental status. COMPARISON STUDY: Chest CT December 22, 2015 and chest radiograph November 23, 2021. TECHNIQUE: Axial images of the chest were obtained without IV contrast. Images were reviewed in the axial, sagittal, and coronal planes. IV contrast was not administered for this examination. Automated exposure control was utilized for the study. A dose lowering technique was utilized adhering to the principles of ALARA. FINDINGS: The endotracheal tube is appropriately positioned. Tip of nasogastric tube is within the distal stomach. Moderate cardiomegaly is noted. There is a prosthetic aortic valve. There is no pericardial effusion. No pneumothorax or pleural effusion is noted. No acute fractures are identified within the bony thorax. Extensive consolidation within the right lung is noted, predominantly within the dependent aspect of the right lung with additional irregular nodular airspace opacities within the right upper lobe. There are secretions within the trachea, right mainstem bronchus and right lower lobe bronchi. No cavitation is identified. There is no thoracic lymphadenopathy. The abdomen and pelvis CT will be reported separately. IMPRESSION: 1. Extensive right lung consolidation and nodular airspace opacities within the right lung. The findings suggest pneumonia/aspiration pneumonitis given extensive secretions most pronounced within the right lower lobe bronchi, as described above. Radiographic follow-up is recommended to exclude ensure resolution. 2. Satisfactory positioning of the endotracheal tube. Tip of nasogastric tube within the distal stomach. The nasogastric tube could be withdrawn 3 cm. 3. Cardiomegaly. ACT 112: Negative or not required by law. Electronically signed by: Jason Hurst M.D. 07/03/2022 8:[address] 07/03/22 18:19 CT OF THE HEAD WITHOUT CONTRAST CLINICAL HISTORY: Altered mental status. COMPARISON STUDY: No previous studies for comparison. TECHNIQUE: Helical axial images of the head were obtained without IV contrast. Automated exposure control was utilized for the study. A dose lowering technique was utilized adhering to the principles of ALARA. FINDINGS: No acute intracranial hemorrhage, midline shift or mass effect is present. Ventricular system is unremarkable. Basal cisterns are patent. There are no extra axial collections. White matter hypodensity suggests small vessel disease. There are no findings to suggest acute dural sinus thrombosis or acute territorial infarct. There is no acute calvarial fracture. Mastoid air cells are clear. Secretions and air-fluid levels within the frontal, ethmoid and sphenoid sinuses are noted. There are extensive secretions within the nasopharynx. Deformity of the anterior wall of the right maxillary sinus is chronic. IMPRESSION: 1. No acute intracranial findings. 2. Secretions within the nasopharynx and sinus opacification, as above. The find ings are likely related to intubation. ACT 112: Negative or not required by law. Electronically signed by: Jason Hurst M.D. 07/03/2022 7:46 PM Discharge Plan Visit Data Chief Complaint: Unresponsive ED Provider: Morgan Sherwood Discharge Problem: Aspiration pneumonia, Respiratory failure, Sepsis, Urinary tract infection, Acute alteration in mental status Patient Disposition: Admitted As Inpatient Discharge Instructions Interventions: ED Discharge Assessment Last Done: 07/03/22 20:58
[2022-07-03 18:50] LABS: Basophils # (auto) 0.02 K/uL (0-0.2); Basophils % (auto) 0.2 %; Hematocrit (blood only) 44.7 % (40.1-51.0); Hemoglobin 14.3 g/dl (14.0-18.0); Immature Granulocytes # (auto) 0.03 K/uL (0.00-0.02); Immature Granulocytes % (auto) 0.3 %; Lymphocytes # (auto) 1.66 K/uL (1.2-3.4); Mean Corpuscular Hemoglobin 30.8 pg (25.0-34.0); Mean Corpuscular Volume 96.1 fL (80.0-100.0); Mean Platelet Volume 10.3 fL (9.4-12.4); Monocytes # (auto) 1.02 K/uL (0.24-0.82); Monocytes % (auto) 9.2 %; Neutrophils # (auto) 8.34 K/uL (1.4-6.5); Neutrophils % (auto) 75.3 %; Platelet Count 176 K/uL (130-400); RDW Coefficient of Variation 14.2 % (11.5-14.5); RDW Standard Deviation 50.4 fL (36.4-46.3); Red Blood Count 4.65 M/uL (4.63-6.08); White Blood Count 11.07 K/ul (4.8-10.8)
[2022-07-03 18:57] LABS: Base Excess VBG -4.6 mEq/L; HCO3 VBG 25 mmol/L; PCO2 VBG 65 mmHg (38-50); PO2 VBG 39 mmHg; pH VBG 7.19 (7.36-7.41)
[2022-07-03 19:00] LABS: Appearance Urine Turbid (Clear); Bilirubin Urine Negative (Negative); Blood Urine 2+ (Negative); Glucose Urine UA Negative (Negative); Ketones Urine Negative (Negative); Leukocyte Esterase Urine 3+ (Negative); Nitrite Urine Positive (Negative); Protein Urine 2+ (Negative); Specific Gravity Urine 1.025 (1.000-1.030); Urobilinogen Urine Negative (Negative); pH Urine 5.5 (4.5-7.5)
[2022-07-03 19:06] LABS: Color Urine Dark Yellow
[2022-07-03 19:09] LABS: INR 1.1 (0.9-1.1); Partial Thromboplastin Time 27.4 Seconds (21.0-31.0); Prothrombin Time 11.4 Seconds (9.0-12.0)
[2022-07-03 19:10] LABS: Epithelial Cell Urine 0-5 /lpf (0-5); RBC Urine 0-4 /hpf (0-4); WBC Urine >30 /hpf (0-5)
[2022-07-03 19:10] LABS: Albumin Level 3.6 gm/dl (3.4-5.0); BUN Creatinine Ratio 13.9 (10-20); Bilirubin Direct 0.2 mg/dl (0-0.2); Bilirubin,Total 0.7 mg/dl (0.2-1.0); Calcium 9.2 mg/dl (8.5-10.1); Creatinine Clr Calc Pharmacy 40.2 ml/min; Est GFR (African American) 39.5 ml/min; Magnesium 1.9 mg/dl (1.7-2.4); Potassium 3.6 mmol/L (3.5-5.1); Total Protein 7.7 gm/dl (6.0-8.3)
[2022-07-03 19:11] LABS: Bacteria Urine 2+ (Negative)
--- NOTE | 2022-07-03 19:17 | XRay Report ---
XR chest 1V portable CLINICAL HISTORY: Sepsis. COMPARISON STUDY: Chest radiograph November 23, [address] December 22, 2015. FINDINGS: The tip of the endotracheal tube is 4.3 cm above the ivory on the final image obtained at 6:57 PM. Tip of nasogastric tube is below the lower aspect of this image but at least within the body of the stomach. Mediastinal widening is unchanged from earlier exams. There is no pneumothorax. A sm all right pleural effusion is noted. Asymmetric interstitial thickening and airspace opacities within the right lung are present. Cardiomegaly is unchanged. IMPRESSION: 1. Satisfactory positioning of the endotracheal and nasogastric tubes. 2. No pneumothorax. Trace right pleural effusion. 3. Asymmetric right lung interstitial thickening and airspace opacities. The findings may reflect an infectious process or asymmetric pulmonary edema. Radiographic follow-up is recommended. ACT 112: Negative or not required by law. Electronically signed by: Jason Hurst M.D. 07/03/2022 7:14 PM
--- NOTE | 2022-07-03 19:49 | CT Scan Report ---
CT OF THE HEAD WITHOUT CONTRAST CLINICAL HISTORY: Altered mental status. COMPARISON STUDY: No previous studies for comparison. TECHNIQUE: Helical axial images of the head were obtained without IV contrast. Automated exposure con trol was utilized for the study. A dose lowering technique was utilized adhering to the principles o f ALARA. FINDINGS: No acute intracranial hemorrhage, midline shift or mass effect is present. Ventricular syst em is unremarkable. Basal cisterns are patent. There are no extra axial collections. White matter hyp odensity suggests small vessel disease. There are no findings to suggest acute dural sinus thrombosis or acute territorial infarct. There is no acute calvarial fracture. Mastoid air cells are clear. Sec retions and air-fluid levels within the frontal, ethmoid and sphenoid sinuses are noted. There are ex tensive secretions within the nasopharynx. Deformity of the anterior wall of the right maxillary sinu s is chronic. IMPRESSION: 1. No acute intracranial findings. 2. Secretions within the nasopharynx and sinus opacification, as above. The findings are likely relat ed to intubation. ACT 112: Negative or not required by law. Electronically signed by: Jason Hurst M.D. 07/03/2022 7:46 PM
[2022-07-03 19:51] LABS: Influenza A virus by PCR Negative (Neg); Influenza B virus by PCR Negative (Neg); RSV by PCR Negative (Neg); SARS CoV2 RNA(COVID-19)Cepheid NEGATIVE (Negative)
--- NOTE | 2022-07-03 19:51 | CT Scan Report ---
CT OF THE CERVICAL SPINE WITHOUT CONTRAST CLINICAL HISTORY: Altered mental status. COMPARISON STUDY: No previous studies for comparison. TECHNIQUE: Helical axial images of the cervical spine were obtained without IV contrast. Sagittal a nd coronal reconstructions were viewed. Automated exposure control was utilized for the study. A do se lowering technique was utilized adhering to the principles of ALARA. FINDINGS: Endotracheal and nasogastric tubes are partially imaged. Secretions within the nasopharynx and partial opacification of the sinuses are likely related to intubation. No acute cervical spine fr acture is noted. Moderate multilevel degenerative changes are present. There is no prevertebral edema . Craniocervical junction is intact. IMPRESSION: No acute cervical spine fracture or subluxation. ACT 112: Negative or not required by law. Electronically signed by: Jason Hurst M.D. 07/03/2022 7:50 PM
[2022-07-03] MEDS ORDERED: ALBUT/IPRATROP 3MG/0.5MG NEB 3 ML VIAL NEB ONE (19:57)
[2022-07-03] MEDS ORDERED: VANCOMYCIN HCL 2,500 MG in SODIUM CHLORIDE 0.9% 500 ML IV ONE (19:58)
[2022-07-03] MEDS ORDERED: VANCOMYCIN CONSULT ACTIVE PRN (19:58)
--- NOTE | 2022-07-03 20:04 | CT Scan Report ---
CT OF THE CHEST WITHOUT IV CONTRAST CLINICAL HISTORY: Altered mental status. COMPARISON STUDY: Chest CT December 22, 2015 and chest radiograph November 23, 2021. TECHNIQUE: Axial images of the chest were obtained without IV contrast. Images were reviewed in the axial, sagittal, and coronal planes. IV contrast was not administered for this examination. Automat ed exposure control was utilized for the study. A dose lowering technique was utilized adhering to t he principles of ALARA. FINDINGS: The endotracheal tube is appropriately positioned. Tip of nasogastric tube is within the d istal stomach. Moderate cardiomegaly is noted. There is a prosthetic aortic valve. There is no perica rdial effusion. No pneumothorax or pleural effusion is noted. No acute fractures are identified withi n the bony thorax. Extensive consolidation within the right lung is noted, predominantly within the d ependent aspect of the right lung with additional irregular nodular airspace opacities within the rig ht upper lobe. There are secretions within the trachea, right mainstem bronchus and right lower lobe bronchi. No cavitation is identified. There is no thoracic lymphadenopathy. The abdomen and pelvis CT will be reported separately. IMPRESSION: 1. Extensive right lung consolidation and nodular airspace opacities within the right lung. The findi ngs suggest pneumonia/aspiration pneumonitis given extensive secretions most pronounced within the ri ght lower lobe bronchi, as described above. Radiographic follow-up is recommended to exclude ensure r esolution. 2. Satisfactory positioning of the endotracheal tube. Tip of nasogastric tube within the distal stoma ch. The nasogastric tube could be withdrawn 3 cm. 3. Cardiomegaly. ACT 112: Negative or not required by law. Electronically signed by: Jason Hurst M.D. 07/03/2022 8:02 PM
--- NOTE | 2022-07-03 20:18 | CT Scan Report ---
CT OF THE ABDOMEN AND PELVIS WITHOUT CONTRAST CLINICAL HISTORY: Altered mental status. COMPARISON STUDY: No previous studies for comparison. TECHNIQUE: Axial images of the abdomen and pelvis were obtained without IV contrast. Images were revi ewed in the axial, sagittal, and coronal planes. Automated exposure control was utilized for the colton dy. A dose lowering technique was utilized adhering to the principles of ALARA. FINDINGS: Extensive consolidation throughout the right lung with secretions within the right bronchia l tree are better depicted on the chest CT which will be reported separately. Endotracheal tube is ap propriately positioned. Tip of nasogastric tube is within the distal stomach. Evaluation of the abdom en and pelvis is suboptimal on this unenhanced exam. No pneumatosis, free air or portal venous gas is present. There are gallstones within the gallbladder. No evidence for acute cholecystitis. Unenhance d images of the liver, spleen, adrenal glands and pancreas are unremarkable. The bladder is collapsed containing a Padron balloon. Bladder wall thickening is noted with adjacent stranding. There is moder ate left perinephric stranding. There is no hydronephrosis. There are no renal, ureteral or bladder c alculi. Small bilateral renal lesions are suboptimally assessed on this unenhanced exam. A 1.4 cm les ion arising from the lower pole of the right kidney on image 301 measures above water attenuation. Th is is indeterminate. Additional bilateral renal lesions measure water attenuation and favor cysts. La xity of the anterior abdominal wall is noted. Exam is compromised given body wall contacting the ondina ry. Fat-containing subumbilical hernias are present. Umbilical hernia repair with mesh is noted. 2.1 cm peripherally calcified left lower quadrant density is noted. This is of doubtful significance. No acute fracture within the lumbar spine, pelvis or hips is identified. IMPRESSION: 1. Extensive consolidation throughout the right lung with secretions within the right bronchial tree. This suggests pneumonia/aspiration pneumonitis. Radiographic follow-up to ensure resolution is recom mended. 2. Tip of nasogastric tube within the distal stomach. The tube could be withdrawn 3 cm. 3. No bowel obstruction. 4. Moderate left perinephric standing and bladder wall thickening with adjacent stranding. These find ings are nonspecific and could be correlated with urinalysis. No urinary calculi or hydronephrosis. 5. Cholelithiasis. No evidence for acute cholecystitis. ACT 112: Negative or not required by law. Electronically signed by: Jason Hurst M.D. 07/03/2022 8:15 PM
[2022-07-03] MEDS ORDERED: VECURONIUM BROMIDE 10 MG VIAL IV ONE (21:22)
--- NOTE | 2022-07-03 21:33 | History & Physical Report ---
Date of Service July 03, 2022 Assessment & Plan (1) Aspiration into respiratory tract: Plan: CT chest on admission showed "extensive right lung consolidation and nodular airspace opacities within the right lung." - Continue vanc/cefepime/metronidazole - MRSA swab ordered - Intubated -> In ICU. Hypoxemic despite high vent settings. Discussed with ICU provider. (2) Pyelonephritis of left kidney: Plan: Likely. CT a/p on 07/03 showed "moderate left perinephric standing and bladder wall thickening". Per niece, he has been having lower urinary tract symptoms for some time. - Continue cefepime - Maintain Padron for now (3) Atrial fibrillation with RVR: Plan: New diagnosis. - On amiodarone gtt per ICU team - Defer anticoagulation given critical illness (4) Infectious encephalopathy: Plan: Found unresponsive in bed. Not a clear history as the person who found him was not in the ER, but no clear indication of seizure-like activity. Presumed to be due to sepsis, pyelonephritis, and aspiration. - Monitor (5) Hypertension: Plan: BP in the ER was initially hypertensive, but BP came down with appropriate sedation to 115/65. - Hold home HTN meds for now (6) S/P TAVR (transcatheter aortic valve replacement): Plan: - Continue ASA/Plavix per ICU team (7) Type 2 diabetes mellitus: Plan: A1c was 7.0% in 05/2022. - Hold all oral DM meds - Sliding scale insulin Q4h while intubated (8) Stage III chronic kidney disease: Plan: Baseline Cr ~1.8 - 2.0. Presently at baseline. - Renally dose meds for CrCl ~40 mL/min (9) CAD in [place] artery: Plan: NSTEMI in 2016 with distal RCA stent. [facility] at [place] in 11/2021 prior to his TAVR with 50% prox LAD, 50% LCx, and 40% prox. RCA. Medical therapy advised. - Continue ASA, Plavix, beta-jhony, and ACEi as able (10) DVT prophylaxis: Plan: Heparin 5,000 units SQ Q12h FULL CODE - Per niece who is medical POA (patient is unmarried and has no children). Niece says her uncle was very clear that he would want everything done. History of Present Illness Primary Care Provider: Pernell P. Horton, DO 81yo M w/ hx of TAVR who presents with altered mental status, sepsis, and afib with RVR. The patient was last know well yesterday around 6:30pm. He spoke with his neice on the phone. He reported being very cold to her (despite the house being a normal temperature), but otherwise did not tell her of any focal complaints such as cough, shortness of breath, nausea, vomiting, dysuria, etc. She notes that he has had ongoing issues with urinary retention and incomplete voiding. He was becoming reluctant to leave the house, as he would have to use the restroom urgently frequently. Today, his niece tried to get ahold of him all day without him responding. Eventually, she went to his house and found him in bed unresponsive. He was given etomidate by the EMS, but they were unable to intubate, so he was intubated in the ER. Allergies Allergy/AdvReac Type Severity Reaction Status Date / Time Penicillins Allergy Unknown SKIN Verified 07/03/22 18:44 PEELING AND ITCHING metformin Allergy Diarrhea Verified 07/03/22 18:44 Axcfovq-XZY-DlS Reductase Allergy muscle Verified 07/03/22 18:44 Inhibitor cramps [Juqtqie-Jun-Zlu Reductase Inhibitor] Home Medications Medication Instructions Recorded Confirmed Type aspirin 81 mg tablet,delayed 81 mg PO DAILY 04/25/19 07/03/22 History release blood-glucose meter (Blood Glucose #1 ea 07/30/19 06/28/22 Rx Monitoring kit) cbd oil 600 ml PO BID 04/03/20 07/03/22 History albuterol sulfate 90 mcg/actuation 2 puff inhalation Q6H PRN 06/01/21 07/03/22 Rx aerosol inhaler (ProAir HFA) shortness of breath or wheezing #8.5 grams blood sugar diagnostic (Blood #300 ea 10/14/21 06/28/22 Rx Glucose Test strips) lancets 30 gauge (OneTouch Delica #300 ea 10/27/21 06/28/22 Rx Lancets) metoprolol succinate 50 mg 50 mg PO DAILY #90 tabs 11/03/21 07/03/22 Rx tablet,extended release 24 hr primidone 50 mg tablet 50 mg PO DAILY #90 tabs 01/12/22 07/03/22 Rx acetaminophen 325 mg tablet 650 mg PO Q4H PRN pain #30 tabs 02/09/22 07/03/22 Rx lisinopril 20 mg tablet 20 mg PO DAILY 04/01/22 07/03/22 History furosemide 40 mg tablet 40 mg PO DAILY PRN edema #90 tabs 04/30/22 07/03/22 Rx potassium chloride 20 mEq 20 meq PO DAILY PRN Days taking 04/30/22 07/03/22 Rx tablet,extended release furosemide #90 tabs gabapentin 300 mg capsule 300 mg PO DAILY 05/11/22 07/03/22 History clindamycin HCl 150 mg capsule 600 mg PO DIRECTED PRN PRIOR TO 07/03/22 07/03/22 History DENTAL APPT. clopidogrel 75 mg tablet 75 mg PO DAILY 07/03/22 07/03/22 History glimepiride 1 mg tablet See Rx Instructions .Route .COMPLEX 07/03/22 07/03/22 History Past Med/Surg History Medical History Actinic keratosis Acute kidney injury Angiofibroma of skin of nose Angioma Antiplatelet or antithrombotic long-term use Aortic valve stenosis CAD in [place] artery Carotid bruit Diabetes mellitus with neurological manifestations Diabetic peripheral neuropathy Diarrhea DELANEY (dyspnea on exertion) Essential (primary) hypertension Hyperlipidemia Hypertension Morbid obesity Multiple benign nevi Obstructive sleep apnea Peripheral edema Proteinuria Sebaceous hyperplasia Seborrheic keratosis Secondary hyperparathyroidism of renal origin Stage 3 chronic kidney disease Stage 3b chronic kidney disease Stool incontinence Vitamin D deficiency Vitamin D deficiency Surgical History H/O umbilical hernia repair S/P TAVR (transcatheter aortic valve replacement) 26 mm Estrada ULTRA valve-02/04/[facility] [place] Stented coronary artery 1 distal right coronary artery, 1 type drug eluting Family History Brother Colorectal cancer Father Cardiac disorder Myocardial infarction Mother Congestive heart failure Spastic colon Sister Breast cancer Uncle Myocardial infarction Sister Congestive heart failure COVID Unknown Breast cancer Denies family history of Ovarian cancer Prostate cancer Diabetes Lung cancer Social History Smoking Status: Unknown if ever smoked Tobacco Type: Cigarettes Age Started Using Tobacco: 11; packs per day: 1; Second Hand Exposure: Yes; Hx Alcohol Use: Yes Alcohol type: hard liquor Alcohol Intake Frequency: Monthly or Less Alcohol Intake Frequency Comment: once per month he will have 1 cocktail with dinner Hx Substance Use: No Preferred Language: Faroese Communication Ability: Effective Visual Impairment: No Limitations Hearing Ability: Hard of Hearing marital status: Single Current Living Situation: Alone current occupational status: retired 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 [employer] Feels Safe at Home: Yes Childhood Exposure to Second-Hand Smoke: No caffeine: Yes during the past year weight has: increased > 10 lbs Dental Care, Regularly: Yes Physical Activity Frequency: Does not Exercise Seatbelt Use: always Sunscreen Use: No Review of Systems Review of Systems: Unobtainable due to cognitive status and Unobtainable due to endotracheal tube Physical Exam Constitutional: WD/WN, vitals as above + acute distress Eyes: no conjunctival abnormality and + EOM not intact ENMT: external ear and nose normal, oropharynx normal Intubated Neck: trachea midline, no thyromegaly normal visual inspection Respiratory: + labored breathing and + tachypneic; no respiratory distress and no cough Auscultation: + rhonchi Cardiovascular: Rate/Rhythm: + tachycardic and + irregularly irregular Heart Sounds: normal S1 and normal S2 Gastrointestinal (Abdomen): Inspection/Auscultation: abdomen normal to inspection; abdomen not distended Musculoskeletal: Extremities: extremities normal to inspection (Some bruising) Skin: no rashes, warm and dry (Bruising, but no noted erythema) Neurologic: + not awake Psychiatric: Orientation: + not alert Results & Data Results & Data ([facility]) Vital Signs (Past 12 Hours) Vital Signs Temp Pulse Pulse Resp BP BP Pulse Ox 07/03/22 20:45 138 H 24 114/65 74 L 07/03/22 20:38 138 H 24 116/71 84 L 07/03/22 20:30 133 H 24 83 L 07/03/22 20:30 140/87 07/03/22 20:23 140 H 24 81 L 07/03/22 20:23 131/101 H 07/03/22 20:16 142 H 20 130/78 87 L 07/03/22 20:15 138 H 20 92 07/03/22 20:00 139 H 20 84 L 07/03/22 20:00 157/111 H 07/03/22 20:18 24 07/03/22 20:12 135 H 20 91 07/03/22 20:05 135 H 20 91 07/03/22 19:45 145 H 17 161/133 H 87 L 07/03/22 19:45 161/133 H 07/03/22 19:44 143 H 20 07/03/22 19:15 157 H 20 07/03/22 19:52 90 07/03/22 19:00 143 H 20 159/106 H 93 07/03/22 18:16 118 H 20 147/90 H 89 L 07/03/22 18:30 162/14 H 07/03/22 18:16 118 H 20 147/90 H 89 L 07/03/22 18:56 37.9 C H 07/03/22 18:45 143 H 20 95 07/03/22 18:45 160/84 H 07/03/22 18:30 126 H 20 94 07/03/22 18:30 162/114 H 07/03/22 18:20 118 H 20 97 07/03/22 18:17 95 07/03/22 18:45 137 H 95 07/03/22 18:26 117 H 20 93 O2 Del Method FiO2 07/03/22 20:45 07/03/22 20:38 07/03/22 20:30 07/03/22 20:30 07/03/22 20:23 07/03/22 20:23 07/03/22 20:16 07/03/22 20:15 07/03/22 20:00 07/03/22 20:00 07/03/22 20:18 07/03/22 20:12 Mechanical Vent 100 07/03/22 20:05 100 07/03/22 19:45 07/03/22 19:45 07/03/22 19:44 07/03/22 19:15 07/03/22 19:52 Mechanical Vent 07/03/22 19:00 07/03/22 18:16 07/03/22 18:30 07/03/22 18:16 07/03/22 18:56 07/03/22 18:45 Mechanical Vent 07/03/22 18:45 07/03/22 18:30 07/03/22 18:30 07/03/22 18:20 07/03/22 18:17 07/03/22 18:45 Mechanical Vent 07/03/22 18:26 80 Code Status & VTE Plan VTE Prophylaxis Plan VTE Prophylaxis will be ordered: Yes PG Care Time/CCT Total # of Minutes Spent Total Time Spent with Patient: Total time spent is greater than 50% in coordination of care (as documented) at patient's floor/unit and/or counseling patient: Coding Level of Care Code 18441 Initial Inpt Care Lvl 3 Diagnoses Aspiration into respiratory tract T17.908A Pyelonephritis of left kidney N12 Atrial fibrillation with RVR I48.91 Infectious encephalopathy G93.49; B99.9 Hypertension I10 S/P TAVR (transcatheter aortic valve replacement) Z95.2 Type 2 diabetes mellitus E11.9 Stage III chronic kidney disease N18.3 CAD in [place] artery I25.10 DVT prophylaxis Z29.9
[2022-07-03] MEDS ORDERED: fentaNYL citrate 2,500 MCG/250 ML BAG IV ONE (21:34)
[2022-07-03] MEDS ORDERED: fentaNYL BOLUS from BAG IV PRN (21:36)
[2022-07-03] MEDS ORDERED: 0.2 MICRON FILTER SET 1 EACH IV ONE ×2 (21:36→21:37)
[2022-07-03] MEDS ORDERED: GLUCOSE 40% GEL 15 GM TUBE PO PRN (21:37)
[2022-07-03] MEDS ORDERED: DEXTROSE 50% 50 ML SYRINGE IV PRN (21:37)
[2022-07-03] MEDS ORDERED: CARBOHYDRATES FOR HYPOGLYCEMIA PO PRN (21:37)
[2022-07-03] MEDS ORDERED: ONDANSETRON INJ 2 MG/ML 2 ML VIAL IV PRN (21:37)
[2022-07-03] MEDS ORDERED: GLUCOSE 10 TAB/TUBE PO PRN (21:37)
[2022-07-03] MEDS ORDERED: GLUCAGON FOR INJ 1 MG VIAL SQ PRN (21:37)
[2022-07-03] MEDS ORDERED: ACETAMINOPHEN 1,000 MG/100 ML VIAL IV PRN (21:39)
[2022-07-03] MEDS ORDERED: AMIODARONE / D5W 360 MG/200 ML BAG IV ONE (21:45)
[2022-07-03] MEDS ORDERED: fentaNYL citrate 2,500 MCG/250 ML BAG IV SCH (21:45)
[2022-07-03] MEDS ORDERED: PHENYLEPHRINE HCL 20 MG in DEXTROSE 5% 500 ML IV SCH (21:45)
[2022-07-03] MEDS ORDERED: metroNIDAZOLE 500 MG/100 ML BAG IV SCH (22:00)
[2022-07-03] MEDS ORDERED: NOREPINEPHRINE/D5W 4 MG/250 ML IV ONE (22:01)
--- NOTE | 2022-07-03 22:23 | Critical Care Consultation ---
Date of Consultation July 03, 2022 Assessment & Plan (1) Acute respiratory failure with hypoxia and hypercapnia: Reason Critically Ill: 81-year-old male presented to the ICU with acute hypoxic and hypercapnic respiratory failure following an aspiration event for which the patient was failed down and unresponsive at his home. Patient was intubated in the emergency department and remained hypoxic despite max ventilatory support with poor compliance to the ventilator. Patient soon entered PEA rhythm following arrival to the ICU and was coded twice before family change the CODE STATUS to DNR. He soon reentered PEA and . Neuro - Sedation: Propofol, fentanyl CT head and neck without acute findings. Cardiac - A. fib RVR (new onset)no prior history in patient with atrial fibrillation on the EKG on arrival to the ED. Was started on amiodarone drip for rate control Troponins negative, EKG without ST elevations. Patient does have CAD with prior [place] and PCI to the RCA. On aspirin and according to primary care documentation unable to tolerate statin and refused lipid panel outpatient. History of aortic stenosiss/p TAVR Respiratory - Acute respiratory failure with hypercapnia and hypoxiasecondary to aspiration event and CT chest with consolidation throughout the right lung with secretions in the right bronchial tree. Was intubated in the emergency department. -Patient does have continued use of smoking 1 pack/day and has history of noncompliance with inhalers and refuses PFTs. He also has previous diagnosis of EDIN -Post intubation AB.21/54/49/21. Ventilator with high peak and high plateau pressures. Patient was given vecuronium which did improve hypoxia and peak pressures -Patient monitored on continuous pulse ox and end-tidal CO2 -Was unable to obtain additional ABG as patient coded and GI - NG tube to low intermittent suction. N.p.o. CT abdomen pelvis showed cholelithiasis without evidence of cholecystitis. LFTs within normal limits RENAL/LYTES - CKD stage IIIcreatinine 1.8 which is patient's prior baseline. Monitor routine BMPs CPK pending - Foleystrict I's and O's ENDO - DM type IIinsulin sliding scale, ICU hyperglycemic protocol HEME - H&H stable ID - Sepsis?No significant leukocytosis and procalcitonin negative. Mildly elevated lactate now improved -Possible UTI on UA, urine culture and blood cultures pending -Aspiration pneumonia/pneumonitis CT chest -Nasal MRSA pending, COVID-19 negative, influenza negative, RSV negative - broad-spectrum antibiotics vancomycin, cefepime, Flagyl LINES/IV ACCESS - Peripheral IVs, OG tube, ET tube DVT PROPHYLAXIS - SCDs CODE STATUS: Patient initially full code and underwent code with CPR x2 before family changed to DNR due to declining status with poor prognosis. I have personally spent 85 minutes of critical care time in the direct management of this patient. This is a life/limb threatening event. This includes time spent evaluating patient, direct bedside care, chart review, placing orders, interpretation of diagnostic studies, discussion with consultants, patient, and family members, as well as other required patient management activities. This time is exclusive of all separately billable procedures, and teaching time and separate from and in addition to any other critical care service time. Thank you for allowing us to participate in the care of this patient. Please refer to my attending physician's documentation for any further recommendations. (2) Aspiration into respiratory tract: (3) Atrial fibrillation with RVR: (4) Pyelonephritis of left kidney: (5) Benign prostatic hyperplasia (BPH) with urinary urge incontinence: (6) S/P TAVR (transcatheter aortic valve replacement): (7) Hypertension: (8) Type 2 diabetes mellitus: (9) Stage III chronic kidney disease: (10) Hyperlipidemia: (11) CAD in [place] artery: (12) Smokes 1 pack of cigarettes per day: History of Present Illness Attending Physician: Sunday Chapman MD History of Present Illness 81-year-old male with past medical history significant for aortic stenosis (s/p TAVR), DM type II, PVD, EDIN, morbid obesity, CAD (s/p stent), CKD, and active smoker who presented to the emergency department after being found down and unresponsive in his bed this afternoon. She was last known normal around 6:30 PM yesterday after he had spoken with his niece on the phone and stated that he did not feel well and felt very cold but did not express any other symptoms to her. The patient's niece checked on him this afternoon after not being able to get an coverage with him next day and found him down and called EMS. EMS was unable to intubate in the field and he was ventilated via bag valve mask until he arrived in the ED where he was emergently intubated. Patient underwent CT head and neck which were unremarkable, CT abdomen and pelvis and CT chest which showed extensive consolidation throughout the right lung with secretions within the right bronchial tree suggesting aspiration pneumonitis/pneumonia. Patient was evaluated in the emergency department and was noted to be significantly hypoxic with oxygen saturations in the 70s on 100% FiO2. ABG showed hypercapnia and hypoxia with pH 7.215, CO2 54, PO2 49, HCO3 21.9. Creatinine appears to be at baseline of 1.8, lactate initially elevated at 2.7 but improved to 1.5 on repeat. Procalcitonin unremarkable and troponin unremarkable. Urinalysis was concerning for UTI and blood cultures and urine culture pending. He has been started on broad-spectrum antibiotics with cefepime and vancomycin and Flagyl was added. Around his arrival to the ICU, patient was showing poor compliance on the ventilator. He was given vecuronium and did show improvement in compliance and oxygenation initially. However, not long after his arrival to the ICU he did become bradycardic and entered a PEA rhythm. He was resuscitated after 1 round of CPR and epinephrine. Repeat ABG was attempted but were unable to obtain at that time. I did speak with the patient's family members in the waiting room this event and did express my concern that given his condition accompanied by his comorbidities, he represented a poor prognosis. Prior to this conversation patient was a full code. He again entered a PEA rhythm during this conversation and family agreed to proceed with 1 more attempt at resuscitation. Patient again achieved ROSC after CPR, epinephrine, bicarb, and calcium. At this time patient was requiring multiple vasopressors and family made the decision to make him DNR in the event of further cardiac arrest. Patient soon reentered PEA rhythm and was pronounced by the primary team. Allergies Allergy/AdvReac Type Severity Reaction Status Date / Time Penicillins Allergy Unknown SKIN Verified 07/03/22 18:44 PEELING AND ITCHING metformin Allergy Diarrhea Verified 07/03/22 18:44 Jhyqlta-FIH-WkE Reductase Allergy muscle Verified 07/03/22 18:44 Inhibitor cramps [Hqipeea-Vjp-Plz Reductase Inhibitor] Home Medications Medication Instructions Recorded Confirmed Type aspirin 81 mg tablet,delayed 81 mg PO DAILY 04/25/19 07/03/22 History release blood-glucose meter (Blood Glucose #1 ea 07/30/19 06/28/22 Rx Monitoring kit) cbd oil 600 ml PO BID 04/03/20 07/03/22 History albuterol sulfate 90 mcg/actuation 2 puff inhalation Q6H PRN 06/01/21 07/03/22 Rx aerosol inhaler (ProAir HFA) shortness of breath or wheezing #8.5 grams blood sugar diagnostic (Blood #300 ea 10/14/21 06/28/22 Rx Glucose Test strips) lancets 30 gauge (OneTouch Delica #300 ea 10/27/21 06/28/22 Rx Lancets) metoprolol succinate 50 mg 50 mg PO DAILY #90 tabs 11/03/21 07/03/22 Rx tablet,extended release 24 hr primidone 50 mg tablet 50 mg PO DAILY #90 tabs 01/12/22 07/03/22 Rx acetaminophen 325 mg tablet 650 mg PO Q4H PRN pain #30 tabs 02/09/22 07/03/22 Rx lisinopril 20 mg tablet 20 mg PO DAILY 04/01/22 07/03/22 History furosemide 40 mg tablet 40 mg PO DAILY PRN edema #90 tabs 04/30/22 07/03/22 Rx potassium chloride 20 mEq 20 meq PO DAILY PRN Days taking 04/30/22 07/03/22 Rx tablet,extended release furosemide #90 tabs gabapentin 300 mg capsule 300 mg PO DAILY 05/11/22 07/03/22 History clindamycin HCl 150 mg capsule 600 mg PO DIRECTED PRN PRIOR TO 07/03/22 07/03/22 History DENTAL APPT. clopidogrel 75 mg tablet 75 mg PO DAILY 07/03/22 07/03/22 History glimepiride 1 mg tablet See Rx Instructions .Route .COMPLEX 07/03/22 07/03/22 History Patient History Medical History Actinic keratosis Acute kidney injury Angiofibroma of skin of nose Angioma Antiplatelet or antithrombotic long-term use Aortic valve stenosis CAD in [place] artery Carotid bruit Diabetes mellitus with neurological manifestations Diabetic peripheral neuropathy Diarrhea DELANEY (dyspnea on exertion) Essential (primary) hypertension Hyperlipidemia Hypertension Morbid obesity Multiple benign nevi Obstructive sleep apnea Peripheral edema Proteinuria Sebaceous hyperplasia Seborrheic keratosis Secondary hyperparathyroidism of renal origin Stage 3 chronic kidney disease Stage 3b chronic kidney disease Stool incontinence Vitamin D deficiency Vitamin D deficiency Surgical History H/O umbilical hernia repair S/P TAVR (transcatheter aortic valve replacement) 26 mm Estrada ULTRA valve-02/04/22-[facility] [place] Stented coronary artery 1 distal right coronary artery, 1 type drug eluting Family History Brother Colorectal cancer Father Cardiac disorder Myocardial infarction Mother Congestive heart failure Spastic colon Sister Breast cancer Uncle Myocardial infarction Sister Congestive heart failure COVID Unknown Breast cancer Denies family history of Ovarian cancer Prostate cancer Diabetes Lung cancer Social History Smoking Status: Unknown if ever smoked Tobacco Type: Cigarettes Age Started Using Tobacco: 11; packs per day: 1; Second Hand Exposure: Yes; Hx Alcohol Use: Yes Alcohol type: hard liquor Alcohol Intake Frequency: Monthly or Less Alcohol Intake Frequency Comment: once per month he will have 1 cocktail with dinner Hx Substance Use: No Preferred Language: Yoruba Communication Ability: Effective Visual Impairment: No Limitations Hearing Ability: Hard of Hearing marital status: Single Current Living Situation: Alone current occupational status: retired 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 Safe at Home: Yes Childhood Exposure to Second-Hand Smoke: No caffeine: Yes during the past year weight has: increased > 10 lbs Dental Care, Regularly: Yes Physical Activity Frequency: Does not Exercise Seatbelt Use: always Sunscreen Use: No Review of Systems Review of Systems: Unobtainable due to cognitive status and Unobtainable due to endotracheal tube Physical Exam Constitutional: + morbidly obese and + mechanically ventilated Eyes: PERRL, conjunctivae normal, anicteric sclerae ENMT: external ear and nose normal, oropharynx normal Neck: trachea midline, no thyromegaly Respiratory: Rhonchi auscultated in the right lobe with diminished right lower lobe sounds. Symmetrical chest wall movement. Left lung clear to auscultation. Cardiovascular: Rate/Rhythm: + tachycardic and + irregularly irregular Vessels: no JVD Extremities: no edema Gastrointestinal (Abdomen): normal bowel sounds, soft, nontender, no hepatosplenomegaly Skin: no rashes, warm and dry Neurologic: Unable to assess due to sedation Psychiatric: Unable to assess due to sedation Genitourinary: Indwelling Padron catheter Results & Data Results & Data ([facility]) Vital Signs (Past 12 Hours) Vital Signs Temp Pulse Pulse Resp BP BP Pulse Ox 07/03/22 21:44 29 H 07/03/22 20:45 138 H 24 114/65 74 L 07/03/22 20:38 138 H 24 116/71 84 L 07/03/22 20:30 133 H 24 83 L 07/03/22 20:30 140/87 07/03/22 20:23 140 H 24 81 L 07/03/22 20:23 131/101 H 07/03/22 20:16 142 H 20 130/78 87 L 07/03/22 20:15 138 H 20 92 07/03/22 20:00 139 H 20 84 L 07/03/22 20:00 157/111 H 07/03/22 20:18 24 07/03/22 20:12 135 H 20 91 07/03/22 20:05 135 H 20 91 07/03/22 19:45 145 H 17 161/133 H 87 L 07/03/22 19:45 161/133 H 07/03/22 19:44 143 H 20 07/03/22 19:15 157 H 20 07/03/22 19:52 90 07/03/22 19:00 143 H 20 159/106 H 93 07/03/22 18:16 118 H 20 147/90 H 89 L 07/03/22 18:30 162/14 H 07/03/22 18:16 118 H 20 147/90 H 89 L 07/03/22 18:56 37.9 C H 07/03/22 18:45 143 H 20 95 07/03/22 18:45 160/84 H 07/03/22 18:30 126 H 20 94 07/03/22 18:30 162/114 H 07/03/22 18:20 118 H 20 97 07/03/22 18:17 95 07/03/22 18:45 137 H 95 07/03/22 18:26 117 H 20 93 O2 Del Method FiO2 07/03/22 21:44 07/03/22 20:45 07/03/22 20:38 07/03/22 20:30 07/03/22 20:30 07/03/22 20:23 07/03/22 20:23 07/03/22 20:16 07/03/22 20:15 07/03/22 20:00 07/03/22 20:00 07/03/22 20:18 07/03/22 20:12 Mechanical Vent 100 07/03/22 20:05 100 07/03/22 19:45 07/03/22 19:45 07/03/22 19:44 07/03/22 19:15 07/03/22 19:52 Mechanical Vent 07/03/22 19:00 07/03/22 18:16 07/03/22 18:30 07/03/22 18:16 07/03/22 18:56 07/03/22 18:45 Mechanical Vent 07/03/22 18:45 07/03/22 18:30 07/03/22 18:30 07/03/22 18:20 07/03/22 18:17 07/03/22 18:45 Mechanical Vent 07/03/22 18:26 80 Coding Level of Care Code Critical Care ea addt'l 30 min Diagnoses Acute respiratory failure with hypoxia and hypercapnia J96.01; J96.02 Aspiration into respiratory tract T17.908A Atrial fibrillation with RVR I48.91 Pyelonephritis of left kidney N12 Benign prostatic hyperplasia (BPH) with urinary urge incontinence N40.1; N39.41 S/P TAVR (transcatheter aortic valve replacement) Z95.2 Hypertension I10 Type 2 diabetes mellitus E11.9 Stage III chronic kidney disease N18.3 Hyperlipidemia E78.5 CAD in [place] artery I25.10 Smokes 1 pack of cigarettes per day F17.210
--- NOTE | 2022-07-03 22:47 | Death Pronouncement Note ---
Date of Service July 03, 2022 Pronouncement Note Admission Date July 03, 2022 Date and Time of Date of : 07/03/22 Time of : 22:37 Preliminary Cause of (1) Aspiration into respiratory tract: (2) Pyelonephritis of left kidney: (3) Atrial fibrillation with RVR: (4) Infectious encephalopathy: (5) Hypertension: (6) S/P TAVR (transcatheter aortic valve replacement): (7) Type 2 diabetes mellitus: (8) Stage III chronic kidney disease: (9) CAD in [place] artery: (10) DVT prophylaxis: Summary Patient was hypoxemic despite maximum vent settings (100% FiO2, PEEP > 10 cmH20). Code Jayjay called ~10pm after patient became bradycardic and went into a PEA. ROSC achieved after approx. 5 minutes of CPR; however, patient's blood pressure fell again, and he lost a pulse. CPR was again started, and ROSC was achieved after another 4 minutes of CPR. Family arrived at that time and made him DNR. On monitor, his HR again went from 150 down to the 50s. SpO2 went from low-90s to high 80s, then to 70s. On examination, the patient had no pulse and no cardiac sounds. Patient was only respirating with the ventillator. Patient was pronounced at 10:37pm. Family present in the room. Additional Data Attending physician: Sunday Chapman MD Coding Level of Care Code D/C DAY MANAGEMENT >30 MINS Diagnoses Aspiration into respiratory tract T17.908A Pyelonephritis of left kidney N12 Atrial fibrillation with RVR I48.91 Infectious encephalopathy G93.49; B99.9 Hypertension I10 S/P TAVR (transcatheter aortic valve replacement) Z95.2 Type 2 diabetes mellitus E11.9 Stage III chronic kidney disease N18.3 CAD in [place] artery I25.10 DVT prophylaxis Z29.9
--- NOTE | 2022-07-03 22:54 | Discharge Summary ---
Date of Service July 03, 2022 Admission HPI Per Admitting Provider 81yo M w/ hx of TAVR who presents with altered mental status, sepsis, and afib with RVR. The patient was last know well yesterday around 6:30pm. He spoke with his neice on the phone. He reported being very cold to her (despite the house being a normal temperature), but otherwise did not tell her of any focal complaints such as cough, shortness of breath, nausea, vomiting, dysuria, etc. She notes that he has had ongoing issues with urinary retention and incomplete voiding. He was becoming reluctant to leave the house, as he would have to use the restroom urgently frequently. Today, his niece tried to get ahold of him all day without him responding. Eventually, she went to his house and found him in bed unresponsive. He was given etomidate by the EMS, but they were unable to intubate, so he was intubated in the ER. Principal Diagnosis Aspiration Pyelonephritis Discharge Exam No pulse No spontaneous respirations Pupils non-reactive Discharge Data Allergies Allergy/AdvReac Type Severity Reaction Status Date / Time Penicillins Allergy Unknown SKIN Verified 07/03/22 18:44 PEELING AND ITCHING metformin Allergy Diarrhea Verified 07/03/22 18:44 Ohjcghy-UEE-TwW Reductase Allergy muscle Verified 07/03/22 18:44 Inhibitor cramps [Bthfruy-Yci-Duc Reductase Inhibitor] Consultations 07/03/22 20:09 ED Decision to Admit Stat 07/03/22 21:37 Consult Nougat Cutter Machine Routine Ordered Studies 07/03/22 18:19 CT abd pelvis wo con Stat CT cervical spine wo con Stat CT chest diagnostic wo con Stat CT head/brain wo con Stat Hospital Course (1) Aspiration into respiratory tract: CT chest on admission showed "extensive right lung consolidation and nodular airspace opacities within the right lung." - Continue vanc/cefepime/metronidazole - MRSA swab ordered - Intubated -> In ICU. Hypoxemic despite high vent settings. Discussed with ICU provider. Patient was hypoxemic despite maximum vent settings (100% FiO2, PEEP > 10 cmH20). Snow Ro called ~10pm after patient became bradycardic and went into a PEA. ROSC achieved after approx. 5 minutes of CPR; however, patient's blood pressure fell again, and he lost a pulse. CPR was again started, and ROSC was achieved after another 4 minutes of CPR. Family arrived at that time and made him DNR. On monitor, his HR again went from 150 down to the 50s. SpO2 went from low-90s to high 80s, then to 70s. On examination, the patient had no pulse and no cardiac sounds. Patient was only respiring with the ventilator. Patient was pronounced at 10:37pm. Family present in the room. (2) Pyelonephritis of left kidney: Likely. CT a/p on 07/03 showed "moderate left perinephric standing and bladder wall thickening". Per niece, he has been having lower urinary tract symptoms for some time. - Continue cefepime - Maintain Padron for now (3) Atrial fibrillation with RVR: New diagnosis. - On amiodarone gtt per ICU team - Defer anticoagulation given critical illness (4) Infectious encephalopathy: Found unresponsive in bed. Not a clear history as the person who found him was not in the ER, but no clear indication of seizure-like activity. Presumed to be due to sepsis, pyelonephritis, and aspiration. - Monitor (5) Hypertension: BP in the ER was initially hypertensive, but BP came down with appropriate sed ation to 115/65. - Hold home HTN meds for now (6) S/P TAVR (transcatheter aortic valve replacement): - Continue ASA/Plavix per ICU team (7) Type 2 diabetes mellitus: A1c was 7.0% in 05/2022. - Hold all oral DM meds - Sliding scale insulin Q4h while intubated (8) Stage III chronic kidney disease: Baseline Cr ~1.8 - 2.0. Presently at baseline. - Renally dose meds for CrCl ~40 mL/min (9) CAD in [place] artery: NSTEMI in 2016 with distal RCA stent. C at [facility] in 11/2021 prior to his TAVR with 50% prox LAD, 50% LCx, and 40% prox. RCA. Medical therapy advised. - Continue ASA, Plavix, beta-jhony, and ACEi as able (10) DVT prophylaxis: Heparin 5,000 units SQ Q12h FULL CODE - Per niece who is medical POA (patient is unmarried and has no children). Niece says her uncle was very clear that he would want everything done. Total Time Total Time Spent Total Time Spent (In Minutes): 60 Discharge Plan Discharge Items Patient Disposition: Discharge Diagnosis: Hypoxemia from aspiration Other Date/Time: 07/03/22 22:37 Coding Level of Care Code D/C DAY MANAGEMENT >30 MINS Diagnoses Aspiration into respiratory tract T17.908A Pyelonephritis of left kidney N12 Atrial fibrillation with RVR I48.91 Infectious encephalopathy G93.49; B99.9 Hypertension I10 S/P TAVR (transcatheter aortic valve replacement) Z95.2 Type 2 diabetes mellitus E11.9 Stage III chronic kidney disease N18.3 CAD in [place] artery I25.10 DVT prophylaxis Z29.9
[2022-07-04] MEDS ORDERED: INSULIN ASPART PER UNIT SC SCH
[2022-07-04] MEDS ORDERED: SODIUM BICARB 8.4% INJ 50 MEQ/50 ML SYR IV ONE (00:04)
[2022-07-04] MEDS ORDERED: KETAMINE HCL INJ 50 MG/ML 10 ML VIAL IV ONE (00:04)
[2022-07-04] MEDS ORDERED: EpINEphrine HCL INJ 1 MG/ML 1ML SYRINGE IV ONE (00:04)
[2022-07-04] MEDS ORDERED: CALCIUM CHLORIDE 10% 10 ML SYR IV ONE (00:04)
[2022-07-04] MEDS ORDERED: SODIUM CHLORIDE 0.9% 10ML FLUSH IV ONE (00:04)
[2022-07-04] MEDS ORDERED: ROCURONIUM BROMIDE 10 MG/ML 5 ML VIAL IV ONE (00:04)
[2022-07-04] MEDS ORDERED: AMIODARONE / D5W 360 MG/200 ML BAG IV SCH (03:45)
[2022-07-04] MEDS ORDERED: VECURONIUM BROMIDE 10 MG VIAL IV STA (07:18)
[2022-07-04] MEDS ORDERED: METOPROLOL SUCC 50MG EXT REL TAB PO SCH (09:00)
[2022-07-04] MEDS ORDERED: ASPIRIN 81 MG ECTAB PO SCH (09:00)
[2022-07-04] MEDS ORDERED: lisinopril 20 MG TAB PO SCH (09:00)
[2022-07-04] MEDS ORDERED: CLOPIDOGREL BISULFATE 75 MG TAB PO SCH (09:00)
--- NOTE | 2022-07-05 05:06 | Electrocardiogram Report ---
Test Reason : Blood Pressure : / mmHG Vent. Rate : 119 BPM Atrial Rate : 122 BPM P-R Int : 188 ms QRS Dur : 094 ms QT Int : 308 ms P-R-T Axes : 000 061 216 degrees QTc Int : 434 ms Sinus tachycardia Premature ventricular complexes Premature atrial complexes Nonspecific ST and T wave abnormality Abnormal ECG When compared with ECG of 23-NOV-2021 14:31, Vent. rate has increased BY 48 BPM Premature atrial complexes are now Present Confirmed by Aris Veliz ([id number]) on 07/05/2022 5:06:31 AM Referred By: REFERRED SELF Confirmed By:Aris Veliz
[2022-07-05 12:27] LABS: iSTAT Arterial Blood Gas pCO2 54 mmHg (35-46); iSTAT Arterial Blood Gas pH 7.22 (7.35-7.45); iSTAT Arterial Blood Gas pO2 49 mmHg (80-95); iSTAT Carbon Dioxide 24 mmol/L (24-31)
[2022-07-05 12:28] LABS: iSTAT Arterial Blood Gas HCO3 22 meg/L (19-24); iSTAT Sample Type Arterial
== END 2022-07-03 22:37 | disposition expired | DRG 871 ==
LOC: ED 18:06 → 1E 20:17 → INTOOBSV 20:17 → 1E 20:58